=== PATIENT | male | born 1975 | race African-American/Black ===

== ENCOUNTER 2017-05-06 19:24 | Emergency (ER) | payer OTHER ==
[2017-05-06] MEDS ORDERED: IBUPROFEN 800 MG TABLET PO ONE (19:44)
--- NOTE | 2017-05-06 20:16 | RADIOLOGY REPORT (SQ) ---
EXAM DESCRIPTION: HAND LEFT 3 VIEWS COMPLETED DATE/TIME: 05/06/2017 8:05 pm REASON FOR STUDY: HVAC fell on his hand, lac COMPARISON: None. EXAM PARAMETERS: NUMBER OF VIEWS: Three views. TECHNIQUE: AP, lateral and oblique radiographic images acquired of the left hand. LIMITATIONS: None. FINDINGS: MINERALIZATION: Normal. BONES: No acute fracture or dislocation. No worrisome bone lesions. JOINTS: No effusions. SOFT TISSUES: No soft tissue swelling. No foreign body. OTHER: No other significant finding. IMPRESSION: NEGATIVE STUDY OF THE LEFT HAND. NO RADIOGRAPHIC EVIDENCE OF ACUTE INJURY. TECHNICAL DOCUMENTATION: JOB ID: [id number] [employer]- All Rights Reserved
--- NOTE | 2017-05-06 20:25 | ER Document Report ---
ED Wound - General Chief Complaint: Laceration Stated Complaint: LEFT HAND LACERATION Time Seen by Provider: 05/06/17 19:43 Notes: Patient is a 41-year-old male presents emergency department complaining of left hand injury. Patient states he works in [employer] and had a unit slide onto his hand with a skin tear. Patient admits to pain at the site but otherwise full range of motion of the hand. Tetanus is up-to-date it within the past 6 months. TRAVEL OUTSIDE OF THE [place] IN LAST 30 DAYS: No - Related Data Allergies/Adverse Reactions: Penicillins Allergy (Verified 08/24/13 17:51) Past Medical History - Social History Smoking Status: Current Every Day Smoker Chew tobacco use (# tins/day): No Frequency of alcohol use: None Drug Abuse: None Family History: Reviewed & Not Pertinent Patient has suicidal ideation: No Patient has homicidal ideation: No - Past Medical History Cardiac Medical History: Reports: Hx Hypertension Renal/ Medical History: Denies: Hx Peritoneal Dialysis Musculoskeltal Medical History: Reports Hx Gout Past Surgical History: Reports: Hx Orthopedic Surgery - bilat knees - Immunizations Hx Diphtheria, Pertussis, Tetanus Vaccination: Yes - unknown Review of Systems - Review of Systems Constitutional: No symptoms reported Musculoskeletal: See HPI Skin: See HPI -: Yes All other systems reviewed and negative Physical Exam - Vital signs Vitals: Temp Pulse Resp BP Pulse Ox 98.9 F 74 16 151/97 H 100 05/06/17 19:42 05/06/17 19:42 05/06/17 19:42 05/06/17 19:42 05/06/17 19:42 - General General appearance: Appears well, Alert In distress: None - Cardiovascular Pulses: Normal: Radial Normal capillary refill: Yes - Extremities Hand: Normal, Tender - Tender at the site of wound. Otherwise no tenderness to metacarpal compression., Laceration. No: Deformity, Dislocation, Nail injury, Swelling, Tendon deficit - Skin Notes: Skin tear on the dorsal surface of the left hand Measuring approximately 6 cm in length without any evidence of bleeding. Course - Re-evaluation Re-evalutation: 05/06/17 21:20 Patient is a 41-year-old male presents emergency department complaining of left hand skin tear. No evidence of of fracture dislocation on x-ray. Closed with Steri-Strips at the bedside with good wound approximation. Patient educated on signs and symptoms to be aware of in wound care. Patient stable for discharge home. - Vital Signs Vital signs: Temp Pulse Resp BP Pulse Ox 98.5 F 74 18 154/95 H 100 05/06/17 20:36 05/06/17 20:36 05/06/17 20:36 05/06/17 20:36 05/06/17 20:36 - Diagnostic Test Radiology reviewed: Image reviewed, Reports reviewed Discharge - Discharge Clinical Impression: Skin tear Condition: Good Disposition: HOME, SELF-CARE Instructions: Care of Steri-Strip Closure ([facility]) Additional Instructions: Let them fall off on their own Do not submerge your hand in water until wound is completely healed Forms: Return to Work Referrals: ANTONIETA LECHUGA MD [Primary Care Provider] - Follow up as needed
[2017-05-06 20:39] VITALS: BP 154/95
== END 2017-05-06 20:39 | disposition home or self-care (01) ==
LOC: ER 19:24
DX: S61.412A Laceration without foreign body of left hand, initial encounter (principal); F17.200 Nicotine dependence, unspecified, uncomplicated; X58.XXXA Exposure to other specified factors, initial encounter
CPT/HCPCS: 99283

== ENCOUNTER 2017-12-21 21:23 | Emergency (ER) | payer OTHER ==
[2017-12-22] MEDS ORDERED: PREDNISONE 20 MG TABLET PO ONE (00:11)
[2017-12-22] MEDS ORDERED: OXYCODONE-ACETAMINOPHEN 5-325 MG TABLET PO ONE (00:11)
--- NOTE | 2017-12-22 00:17 | ER Document Report ---
ED General - General Chief Complaint: L foot/ R hand pain - Gout Stated Complaint: PAIN Time Seen by Provider: 12/22/17 00:07 Mode of Arrival: Ambulatory Information source: Patient TRAVEL OUTSIDE OF THE [place] IN LAST 30 DAYS: No - HPI Patient complains to provider of: GOUT FLARE UP Onset: This morning Notes: The patient is here with complaints of a flareup of gout to his right thumb and his left foot. Patient has a long-standing history of gout. He is on allopurinol. He states that he woke up this morning with swelling to the right thumb in the left foot. This is consistent with previous gout flares he has had in the past. He denies any injuries to these areas. He denies fevers. He denies numbness, tingling, weakness. He just started his colchicine this evening. He has no other medications to treat his gout. He states typically he needs to be placed on steroids and is requesting some pain medication. He denies any chest pain, shortness of breath. No nausea, vomiting, diarrhea. Pain is worse with any sort of movement or touching the areas, better with rest. - Related Data Allergies/Adverse Reactions: Penicillins Allergy (Verified 08/24/13 17:51) Past Medical History - Social History Smoking Status: Unknown if Ever Smoked Family History: Reviewed & Not Pertinent Patient has suicidal ideation: No Patient has homicidal ideation: No - Past Medical History Cardiac Medical History: Reports: Hx Hypertension Renal/ Medical History: Denies: Hx Peritoneal Dialysis Musculoskeltal Medical History: Reports Hx Gout Past Surgical History: Reports: Hx Orthopedic Surgery - bilat knees - Immunizations Hx Diphtheria, Pertussis, Tetanus Vaccination: Yes - unknown Review of Systems - Review of Systems -: Yes All other systems reviewed and negative Physical Exam - Vital signs Vitals: Temp Pulse Resp BP Pulse Ox 99.3 F 97 20 152/102 H 97 12/21/17 21:30 12/21/17 21:30 12/21/17 21:30 12/21/17 21:30 12/21/17 21:30 - Notes Notes: GENERAL: alert, cooperative, nontoxic, no distress. HEAD: normocephalic, atraumatic EYES: conjunctiva pink without discharge, no external redness or swelling. EARS: no external swelling, no external redness NOSE: atraumatic, no external swelling MOUTH/THROAT: mucous membranes moist and pink NECK: soft, supple, full range of motion, no meningismus. CHEST: no distress, lungs clear and equal throughout. No wheezing, rales, rhonchi. CARDIAC: regular rate and rhythm, no murmur, normal capillary refill, normal pulses. BACK: full range of motion, no CVA tenderness. EXTREMITIES: Swelling to the right thumb. No redness. Limited range of motion due to pain. Normal cap refill and sensation distally. Normal radial pulse. Generalized swelling to the left foot. There is no significant redness. There is generalized tenderness. Limited range of motion due to pain. Normal pulse and sensation. Normal cap refill. NEURO: alert and oriented 3, no focal deficits, full range of motion of all extremities. PYSCH: appropriate mood, affect. Patient is cooperative. SKIN: pink, warm, dry, no rash. Course - Re-evaluation Re-evalutation: 12/22/17 00:13 The patient is nontoxic appearing with stable vitals. The patient has a long- standing history of gout. He is on allopurinol. He states that he woke up this morning with right thumb and left foot pain and swelling consistent with previous gout flareups. He denies any injuries. He has no signs of infection. He is afebrile. He has a normal neurovascular exam. He has an exam consistent with gout. At this point the patient will be given a dose of prednisone and Percocet here in the emergency department and I will discharge him home with 5 days of prednisone and a small supply of Percocet until his colchicine and steroids have had a chance to kick and to decrease his inflammation. He was instructed to follow-up with his primary care doctor if he is not improving the next 3-5 days, sooner for increasing pain, high fever, redness, numbness, tingling, weakness, or for any further concerns. The patient's emergency department workup and current diagnosis were explained to the patient and or family. Follow-up instructions were provided. Medications if prescribed were discussed. Instructions for when to return to the emergency department including specific worrisome symptoms were discussed with the patient and/or family. The patient is noted to have elevated blood pressure during today's emergency department visit. The patient was informed of this finding. The patient was instructed that this may be related to pre-hypertension and requires further evaluation with a primary care provider. The patient has no hypertensive symptoms at this time. - Vital Signs Vital signs: Temp Pulse Resp BP Pulse Ox 99.3 F 97 20 152/102 H 97 12/21/17 21:30 12/21/17 21:30 12/21/17 21:30 12/21/17 21:30 12/21/17 21:30 Discharge - Discharge Clinical Impression: Gout attack Qualifiers: Gout site: foot Gout etiology: unspecified cause Laterality: left Qualified Code(s): M10.9 - Gout, unspecified Condition: Stable Disposition: HOME, SELF-CARE Instructions: Gout ([facility]), Gout Diet ([facility]) Additional Instructions: Take medications as prescribed. Take her colchicine as prescribed. Follow-up with your doctor if not better in the next 3-5 days, sooner for worsening pain, high fever, redness, numbness, tingling, weakness, or for any further concerns. Your blood pressure was elevated during today's visit. Have this rechecked with your doctor. Prescriptions: Oxycodone HCl/Acetaminophen [Percocet 5-325 mg Tablet] 1 - 2 tab PO Q4H PRN #15 tablet PRN Reason: Prednisone [Deltasone 20 mg Tablet] 3 tab PO DAILY 5 Days tablet Forms: Elevated Blood Pressure, Smoking Cessation Education Referrals: [facility] [Provider Group] - Follow up as needed
[2017-12-22 00:43] VITALS: BP 142/95
== END 2017-12-22 00:44 | disposition home or self-care (01) ==
LOC: ER 21:23
DX: M10.9 Gout, unspecified (principal); Z79.899 Other long term (current) drug therapy; I10 Essential (primary) hypertension; Z88.0 Allergy status to penicillin
CPT/HCPCS: 99283; J7512

== ENCOUNTER 2018-02-23 18:43 | Emergency (ER) | payer OTHER ==
[2018-02-23] MEDS ORDERED: OXYCODONE-ACETAMINOPHEN 5-325 MG TABLET PO ONE (20:10)
[2018-02-23] MEDS ORDERED: PREDNISONE 20 MG TABLET PO ONE (20:10)
--- NOTE | 2018-02-23 20:14 | ER Document Report ---
ED Hand/Wrist Injury - General Chief Complaint: Wrist Pain Stated Complaint: HAND PAIN Time Seen by Provider: 02/23/18 19:58 Mode of Arrival: Ambulatory Information source: Patient TRAVEL OUTSIDE OF THE [place] IN LAST 30 DAYS: No - HPI Injury to: Wrist Notes: Patient is here with complaints of left wrist pain and swelling. The patient has a history of gout. States this feels like his typical gout flareups. He denies any fall or injury. He denies fever. He denies nausea, vomiting, diarrhea. No numbness, tingling, weakness. Does have a history of some chronic kidney disease. He is on daily allopurinol. States she has been taking Tylenol without any relief of his pain. He denies any chest pain or shortness of breath. No other pain or injuries. Pain is worse with touching the area or movement, nothing seems to be making it better. - Related Data Allergies/Adverse Reactions: Penicillins Allergy (Verified 02/23/18 19:49) Past Medical History - Social History Smoking Status: Current Every Day Smoker Frequency of alcohol use: Occasional Drug Abuse: None Family History: Reviewed & Not Pertinent Patient has suicidal ideation: No Patient has homicidal ideation: No - Past Medical History Cardiac Medical History: Reports: Hx Hypertension Renal/ Medical History: Denies: Hx Peritoneal Dialysis Musculoskeltal Medical History: Reports Hx Gout Past Surgical History: Reports: Hx Orthopedic Surgery - bilat knees - Immunizations Hx Diphtheria, Pertussis, Tetanus Vaccination: Yes - unknown Review of Systems - Review of Systems -: Yes All other systems reviewed and negative Physical Exam - Vital signs Vitals: Temp Pulse Resp BP Pulse Ox 98.9 F 79 20 188/108 H 100 02/23/18 18:53 02/23/18 18:53 02/23/18 18:53 02/23/18 18:53 02/23/18 18:53 - Notes Notes: GENERAL: alert, cooperative, nontoxic, no distress. HEAD: normocephalic, atraumatic EYES: conjunctiva pink without discharge, no external redness or swelling. EARS: no external swelling, no external redness NOSE: atraumatic, no external swelling MOUTH/THROAT: mucous membranes moist and pink NECK: soft, supple, full range of motion, no meningismus. CHEST: no distress, lungs clear and equal throughout. No wheezing, rales, rhonchi. CARDIAC: regular rate and rhythm, no murmur, normal capillary refill, normal pulses. BACK: full range of motion, no CVA tenderness. EXTREMITIES: Swelling and tenderness noted to the left wrist. Limited range of motion secondary to pain. No redness. Slightly warmer to the touch. Normal pulse and sensation distally. Compartments are soft. No deformity. NEURO: alert and oriented 3, no focal deficits, full range of motion of all extremities. PYSCH: appropriate mood, affect. Patient is cooperative. SKIN: pink, warm, dry, no rash. Course - Re-evaluation Re-evalutation: 02/23/18 20:12 Patient is nontoxic appearing with stable vitals. Is here with complaints of left wrist pain and swelling. Patient has a history of gout states that this feels very similar to previous gout flareups he had in the past. He is on allopurinol. On exam he has an exam consistent with a gout flareup. He has no fever. He had no injury. No signs of infection or need for x-rays at this time. At this point the patient will be given prednisone and Percocet. He cannot take NSAIDs due to chronic kidney disease. Explained that the patient needs to have a visible right here in emergency department prior to getting narcotic pain medication. I offered him Tylenol at this time, but he states that he is taking it and it is not helping. Patient will be given a dose of prednisone at this point. Once his ride arrives, he will be given a dose of Percocet and he will be discharged home with a prescription for Percocet as well as prednisone. The patient is noted to have elevated blood pressure during today's emergency department visit. The patient was informed of this finding. The patient was instructed that this may be related to pre-hypertension and requires further evaluation with a primary care provider. The patient has no hypertensive symptoms at this time. The patient's emergency department workup and current diagnosis were explained to the patient and or family. Follow-up instructions were provided. Medications if prescribed were discussed. Instructions for when to return to the emergency department including specific worrisome symptoms were discussed with the patient and/or family. - Vital Signs Vital signs: Temp Pulse Resp BP Pulse Ox 98.9 F 79 20 188/108 H 100 02/23/18 18:53 02/23/18 18:53 02/23/18 18:53 02/23/18 18:53 02/23/18 18:53 Discharge - Discharge Clinical Impression: Gout of left wrist Qualifiers: Gout etiology: unspecified cause Chronicity: acute Qualified Code(s): M10.9 - Gout, unspecified Condition: Stable Disposition: HOME, SELF-CARE Instructions: Gout ([facility]), Gout Diet ([facility]) Additional Instructions: Take medication as prescribed. Follow-up with your doctor if not better in the next 3-5 days, sooner for worsening pain, fever, numbness, tingling, weakness, any further concerns. Your blood pressure was elevated during today's visit. Have this rechecked with your doctor. The medication you were prescribed today may cause drowsiness. Do not drive or operate heavy machinery while taking this medication. Prescriptions: Oxycodone HCl/Acetaminophen [Percocet 5-325 mg Tablet] 1 - 2 tab PO Q4H PRN #15 tablet PRN Reason: Prednisone [Deltasone 20 mg Tablet] 3 tab PO DAILY 5 Days tablet Forms: Elevated Blood Pressure, Smoking Cessation Education Referrals: KAROLINE KENNEY MD [Primary Care Provider] - Follow up as needed
[2018-02-23 20:40] VITALS: BP 169/95
== END 2018-02-23 20:37 | disposition home or self-care (01) ==
LOC: ER 18:43
DX: M10.9 Gout, unspecified (principal); M25.532 Pain in left wrist; F17.200 Nicotine dependence, unspecified, uncomplicated; I10 Essential (primary) hypertension; Z88.0 Allergy status to penicillin
CPT/HCPCS: 99283; J7512

== ENCOUNTER → 2018-03-31 | Outpatient (CLI) | payer OTHER ==
--- NOTE | 2018-03-31 11:19 | RADIOLOGY REPORT (SQ) ---
EXAM DESCRIPTION: CHEST 2 VIEWS COMPLETED DATE/TIME: 03/31/2018 11:11 am REASON FOR STUDY: MUSCLE SPASM OF BACK (M62.830) COMPARISON: Chest films 04/16/2011, 04/12/2013, 05/14/2013 EXAM PARAMETERS: NUMBER OF VIEWS: two views TECHNIQUE: Digital Frontal and Lateral radiographic views of the chest acquired. RADIATION DOSE: NA LIMITATIONS: none FINDINGS: LUNGS AND PLEURA: No opacities, masses or pneumothorax. No pleural effusion. MEDIASTINUM AND HILAR STRUCTURES: No masses or contour abnormalities. HEART AND VASCULAR STRUCTURES: Heart normal size. No evidence for failure. BONES: No acute findings. HARDWARE: None in the chest. OTHER: No other significant finding. IMPRESSION: NO ACUTE RADIOGRAPHIC FINDING IN THE CHEST. TECHNICAL DOCUMENTATION: JOB ID: [id number]- All Rights Reserved Reading location - IP/workstation name: [email or web address]
== END ==
LOC: RAD 10:49
PROVIDERS: ATTEND Family Medicine
DX: M62.830 Muscle spasm of back (principal); Z72.0 Tobacco use
CPT/HCPCS: 71046

== ENCOUNTER → 2019-05-04 | Outpatient (CLI) | payer OTHER ==
[2019-05-04 11:49] LABS: ABSOLUTE BASOPHILS # (AUTO) 0.1 10^3/uL (0.0-0.2); ABSOLUTE EOSINOPHILS # (AUTO) 0.6 10^3/uL (0.0-0.6); ABSOLUTE LYMPHOCYTES (AUTO) 1.1 10^3/uL (0.5-4.7); ABSOLUTE MONOCYTES (AUTO) 0.3 10^3/uL (0.1-1.4); ABSOLUTE NEUT (AUTO) 3.1 10^3/uL (1.7-8.2); BASOPHILS % (AUTO) 1.6 % (0-2); EOSINOPHILS % (AUTO) 11.9 % (0-6); HEMATOCRIT 34.2 % (37.9-51.0); HEMOGLOBIN 11.4 g/dL (13.5-17.0); LYMPHOCYTES % (AUTO) 21.9 % (13-45); MEAN CORPUSCULAR HEMOGLOBIN 26.3 pg (27.0-33.4); MEAN CORPUSCULAR HGB CONC 33.3 g/dL (32.0-36.0); MEAN CORPUSCULAR VOLUME 79 fl (80-97); MONOCYTES % (AUTO) 6.4 % (3-13); PLATELET COUNT 260 10^3/uL (150-450); RED BLOOD COUNT 4.33 10^6/uL (4.35-5.55); RED CELL DISTRIBUTION WIDTH 13.3 % (11.5-14.0); SEGMENTED NEUTROPHILS % (AUTO) 58.2 % (42-78); TOTAL CELLS COUNTED % (AUTO) 100 %; WHITE BLOOD COUNT 5.2 10^3/uL (4.0-10.5)
[2019-05-04 11:53] LABS: APPEARANCE,URINE CLEAR; BILIRUBIN,URINE NEGATIVE (NEGATIVE); COLOR,URINE YELLOW; GLUCOSE, URINE NEGATIVE (NEGATIVE); KETONES,URINE NEGATIVE (NEGATIVE); LEUKOCYTE ESTERASE,URINE NEGATIVE (NEGATIVE); NITRITE,URINE NEGATIVE (NEGATIVE); PROTEIN,URINE NEGATIVE (NEGATIVE); UROBILINOGEN,URINE NEGATIVE mg/dL (<2.0)
[2019-05-04 12:08] LABS: ALANINE AMINOTRANSFERASE 11 U/L (21-72); ALBUMIN 3.9 g/dL (3.5-5.0); ALKALINE PHOSPHATASE 56 U/L (38-126); ANION GAP 8 (5-19); ASPARTATE AMINO TRANSFERASE 23 U/L (17-59); BILIRUBIN,DIRECT 0.2 mg/dL (0.0-0.4); BILIRUBIN,TOTAL 0.3 mg/dL (0.2-1.3); BLOOD UREA NITROGEN 24 mg/dL (7-20); CALCIUM 9.2 mg/dL (8.4-10.2); CARBON DIOXIDE 29 mmol/L (22-30); CHLORIDE 103 mmol/L (98-107); GLUCOSE 88 mg/dL (75-110); POTASSIUM 4.7 mmol/L (3.6-5.0); URIC ACID 12.3 mg/dL (3.5-8.5)
== END ==
LOC: OD 11:12
PROVIDERS: ATTEND Internal Medicine Nephrology
DX: N18.3 Chronic kidney disease, stage 3 (moderate) (principal); M10.00 Idiopathic gout, unspecified site
CPT/HCPCS: 36415; 80053; 81001; 83735; 83970; 84100; 84550; 85025

== ENCOUNTER → 2019-06-26 | Outpatient (CLI) | payer OTHER ==
[2019-06-26 10:47] LABS: ABSOLUTE BASOPHILS # (AUTO) 0.1 10^3/uL (0.0-0.2); ABSOLUTE EOSINOPHILS # (AUTO) 0.4 10^3/uL (0.0-0.6); ABSOLUTE LYMPHOCYTES (AUTO) 0.9 10^3/uL (0.5-4.7); ABSOLUTE MONOCYTES (AUTO) 0.6 10^3/uL (0.1-1.4); ABSOLUTE NEUT (AUTO) 5.2 10^3/uL (1.7-8.2); BASOPHILS % (AUTO) 0.9 % (0-2); EOSINOPHILS % (AUTO) 5.3 % (0-6); HEMATOCRIT 33.2 % (37.9-51.0); HEMOGLOBIN 10.8 g/dL (13.5-17.0); LYMPHOCYTES % (AUTO) 12.1 % (13-45); MEAN CORPUSCULAR HGB CONC 32.5 g/dL (32.0-36.0); MEAN CORPUSCULAR VOLUME 80 fl (80-97); PLATELET COUNT 213 10^3/uL (150-450); RED BLOOD COUNT 4.14 10^6/uL (4.35-5.55); RED CELL DISTRIBUTION WIDTH 14.8 % (11.5-14.0); SEGMENTED NEUTROPHILS % (AUTO) 72.7 % (42-78); TOTAL CELLS COUNTED % (AUTO) 100 %; WHITE BLOOD COUNT 7.1 10^3/uL (4.0-10.5)
[2019-06-26 11:07] LABS: ALBUMIN 4.2 g/dL (3.5-5.0); ALKALINE PHOSPHATASE 75 U/L (38-126); ANION GAP 11 (5-19); ASPARTATE AMINO TRANSFERASE 22 U/L (17-59); BILIRUBIN,DIRECT 0.2 mg/dL (0.0-0.4); BILIRUBIN,TOTAL 0.4 mg/dL (0.2-1.3); BLOOD UREA NITROGEN 28 mg/dL (7-20); CALCIUM 9.7 mg/dL (8.4-10.2); CARBON DIOXIDE 28 mmol/L (22-30); CHLORIDE 100 mmol/L (98-107); GLUCOSE 104 mg/dL (75-110); POTASSIUM 4.8 mmol/L (3.6-5.0); TOTAL PROTEIN 7.2 g/dL (6.3-8.2); URIC ACID 6.6 mg/dL (3.5-8.5)
== END ==
LOC: OD 10:19
PROVIDERS: ATTEND Internal Medicine Nephrology
DX: I12.9 Hypertensive chronic kidney disease with stage 1 through stage 4 chronic kidney disease, or unspecified chronic kidney disease (principal); N18.3 Chronic kidney disease, stage 3 (moderate); M10.00 Idiopathic gout, unspecified site
CPT/HCPCS: 36415; 80053; 84550; 85025

== ENCOUNTER 2020-05-10 23:00 | Emergency (ER) | payer OTHER ==
--- NOTE | 2020-05-10 23:31 | ER Document Report ---
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 He is his birthday today and has been drinking all afternoon. No other substance use. Brought in a wheelchair slumped to the side. Cannot give history. TRAVEL OUTSIDE OF THE [place] IN LAST 30 DAYS: No - Related Data Allergies/Adverse Reactions: Penicillins Allergy (Verified 02/23/18 19:49) Past Medical History - General Information source: Patient, Friend - Social History Smoking Status: Never Smoker Family History: Reviewed & Not Pertinent - Past Medical History Cardiac Medical History: Reports: Hx Hypertension Renal/ Medical History: Denies: Hx Peritoneal Dialysis Musculoskeletal Medical History: Reports Hx Gout Past Surgical History: Reports: Hx Orthopedic Surgery - bilat knees - Immunizations Hx Diphtheria, Pertussis, Tetanus Vaccination: Yes - unknown Review of Systems - Review of Systems Notes: REVIEW OF SYSTEMS Altered mental status PHYSICAL EXAMINATION General: No acute di drooling slumped over in a wheelchair smells of alcohol Head: Atraumatic, normocephalic ENT: Mouth normal, oropharynx moist, no exudates or tonsillar enlargement Eyes: Conjunctiva normal, pupils equal, lids normal Neck: No JVD, supple, no guarding CVS: Normal rate, regular rhythm, no murmurs Resp: No resp distress, equal and normal breath sounds bilaterally GI: Nondistended, soft, no tenderness to palpation, no rebound or guarding Ext: No deformities, no edema, normal range of motion in upper and lower ext Back: No CVA or midline TTP Skin: No rash, warm Lymphatic: No lymphadeopathy noted Neuro: Sleepy but arouses to pain response to painful stimulus and slurs his speech. S 15. Physical Exam - Vital signs Vitals: Temp Pulse Resp BP Pulse Ox 97.6 F 94 20 94/56 L 94 05/10/20 23:10 05/10/20 23:10 05/10/20 23:10 05/10/20 23:10 05/10/20 23:10 Course - Re-evaluation Re-evalutation: 05/11/20 00:49 Alcohol intoxication, no trauma normal blood sugar. Observe for sobriety and discharge with assistance given friend at bedside. Vital signs are normal I have discussed with the patient there likely diagnosis, aftercare plan, follow-up plans and my usual and customary return precautions. They verbalized understanding of this. - Vital Signs Vital signs: Temp Pulse Resp BP Pulse Ox 97.9 F 93 15 131/92 H 100 05/10/20 23:37 05/10/20 23:37 05/11/20 00:01 05/11/20 00:00 05/11/20 00:01 - Laboratory Laboratory results interpreted by me: 05/10/20 23:29 POC Glucose 191 H Discharge - Discharge Clinical Impression: Alcohol intoxication Condition: Good Disposition: HOME, SELF-CARE Instructions: Acute Alcohol Intoxication ([facility]) Referrals: Damien HERNANDEZ MD [Primary Care Provider] - Follow up as needed
[2020-05-11] MEDS ORDERED: PROMETHAZINE HCL INJ 25 MG/1 ML VIAL IM ONE (01:03)
[2020-05-11 01:50] VITALS: BP 143/99
== END 2020-05-11 01:30 | disposition home or self-care (01) ==
LOC: ER 23:00
DX: F10.129 Alcohol abuse with intoxication, unspecified (principal); R41.82 Altered mental status, unspecified; I10 Essential (primary) hypertension; Z88.0 Allergy status to penicillin
CPT/HCPCS: 99284; 96372; 82962; J2550